=== PATIENT | female | born 1995 | race Caucasian/White ===

== ENCOUNTER 2022-03-09 15:24 | Emergency (ER) | payer BC, MEDICAID ==
[2022-03-09] MEDS ORDERED: Sodium Chloride 0.9% 1,000 ML IV ONE (15:25)
[2022-03-09] MEDS ORDERED: Ondansetron 4 MG/2 ML SDV IVPUSH PRN (15:25)
[2022-03-09] MEDS ORDERED: Ondansetron 4 MG Tab.DIS PO STA (15:47)
[2022-03-09] MEDS ORDERED: Ondansetron 4 MG Tab.DIS PO ONE (15:55)
[2022-03-09 18:12] VITALS: BP 129/82; PULSE 84
== END 2022-03-09 16:20 | disposition home or self-care (01) ==
LOC: CC.ED 15:24
DX: R11.2 Nausea with vomiting, unspecified (principal); Z91.048 Other nonmedicinal substance allergy status; Z88.1 Allergy status to other antibiotic agents; Z88.2 Allergy status to sulfonamides; Z88.8 Allergy status to other drugs, medicaments and biological substances; Z79.899 Other long term (current) drug therapy
CPT/HCPCS: 96374; 99283; 99283-25; A9270-GY; J2405